=== PATIENT | male | born 1975 | race Caucasian/White ===

== ENCOUNTER 2017-09-14 09:10 | Day surgery (SDC) | payer OTHER ==
[2017-09-12 12:09] VITALS: BMI 29.2
[2017-09-14] MEDS ORDERED: BUPIVACAINE HCL/PF 2.5 MG/ML - 30 ML VIAL IJ ONE (10:40)
[2017-09-14] MEDS ORDERED: EPINEPHrine 1:1,000 1 MG/1 ML - 30ML VIAL (INJECTION) ONE (10:40)
[2017-09-14] MEDS ORDERED: PROPOFOL 20 ML ONE ×2 (11:45)
[2017-09-14] MEDS ORDERED: LIDOCAINE HCL 2% JELLY (5 ML/TUBE) ONE (11:56)
[2017-09-14] MEDS ORDERED: ceFAZolin SODIUM 1 GM VIAL ONE (11:56)
[2017-09-14] MEDS ORDERED: ONDANSETRON 4 MG/2 ML VIAL ONE ×2 (11:56→12:47)
[2017-09-14] MEDS ORDERED: DEXAMETHASONE SOD PHOSPHATE 4 MG/1 ML VIAL ONE (11:56)
[2017-09-14] MEDS ORDERED: KETOROLAC TROMETHAMINE 30 MG/1 ML VIAL ONE (11:56)
[2017-09-14] MEDS ORDERED: LIDOCAINE HCL/PF 2% SDV 5ML VIAL ONE (11:56)
[2017-09-14] MEDS ORDERED: ONDANSETRON 4 MG/2 ML VIAL IVPUSH PRN ×2 (12:04→12:38)
[2017-09-14] MEDS ORDERED: oxyCODONE HCL 5 MG TABLET PO PRN ×4 (12:04→12:38)
[2017-09-14] MEDS ORDERED: LACTATED RINGERS SOLUTION 1,000 ML IV SCH ×2 (12:15→12:45)
[2017-09-14] MEDS ORDERED: PROMETHAZINE HCL 25 MG/1 ML VIAL IVPUSH PRN (12:38)
[2017-09-14] MEDS ORDERED: oxyCODONE HCL 5 MG TABLET ONE ×2 (13:35→13:58)
[2017-09-14 14:35] VITALS: TEMP 97.7
[2017-09-14 14:39] VITALS: BP 115/74; PULSE 72
--- NOTE | 2017-09-16 23:00 | OP ---
DATE OF OPERATION: 09/14/2017 SURGEON: Parrish Salazar M.D. PLANT SPRAYER: Akiko Xie PREOPERATIVE DIAGNOSIS: 1. Right knee medial lateral meniscal tear. 2. Right knee cartilage injury. 3. Right knee synovitis. POSTOPERATIVE DIAGNOSIS: 1. Right knee medial lateral meniscal tear. 2. Right knee cartilage injury. 3. Right knee synovitis. PROCEDURE: 1. Right knee arthroscopy, partial meniscectomy medial and lateral meniscus. 2. Right knee arthroscopy with chondroplasty and abrasion plasty. 3. Right knee arthroscopy synovectomy including removal of medial plica. CPT CODES: 81267, [id number]. FINDINGS: 1. Medial meniscus posterior horn tear/minor. 2. Lateral meniscus posterior horn tear/minor. 3. Synovitis patellofemoral medial lateral notch area. 4. No evidence of cartilage injury . 6. ACL and PCL intact. 7. No evidence of cartilage injury . 8. Large medial plica with adhesion to anterior patellofemoral trochlea with grade 2-4 changes, anterior patellofemoral trochlea. 9. Grade 2 cartilage lateral facet patella. PROCEDURE: Informed consent was obtained. The patient came to the operating room, where the lower extremity was prepped and draped in a sterile fashion. A tourniquet was placed on the upper thigh, but not inflated. Using standard arthroscopic technique, a lateral incision and portal was made to allow for introduction of the camera into the suprapatellar bursa. This was then taken to the medial joint line, where under direct visualization, a medial incision and portal was made. Excessive synovium noted in the medial, lateral and patellofemoral and notch area was removed by an upbiter, shaver and Bovie cautery. This was found to bring in inflammatory tissue into the joint surface, a source of pain and dysfunction. Probing of the medial and lateral meniscus found tears, as described in the findings. These were removed with the upbiter and shaver and taken back to a stable rim. Grade 2 to 3 degenerative changes were treated with a chondroplasty, removing all flaking surfaces with low-setting Bovie along the periphery to prevent further flaking. Grade 4 changes, as noted, were treated with an abrasoplasty, creating a bleeding surface at the bone/cartilage interface. Aggressive debridement with shaver/felipe created bleeding surface. Mirco fracture also done when indicated in findings All areas of the knee were once again reexamined. The knee was then drained and a single suture was placed in all portals. A sterile dressing was placed and the patient was transferred to the recovery room without complication. PARRISH SALAZAR M.D. [id number]
--- NOTE | 2017-09-19 16:09 | PATH ---
Surgical Pathology Report Patient Name: JENNIFER DENTON Med. Rec. #: [id number] /Age/Gender: 1975 (Age: 41) / M Account: [id number] Location: [facility] Taken: 09/14/2017 Received: 09/14/2017 Reported: 09/19/2017 Physicians: Parrish Benitez M.D. Specimen(s) Received RIGHT KNEE SHAVINGS Clinical History Internal derangement of right knee Final Diagnosis KNEE, RIGHT, ARTHROSCOPIC SHAVINGS: FIBROSYNOVIAL TISSUE AND SCANT CARTILAGE. Electronically Signed Angelia Schultz M.D. Gross Description Received in formalin, labeled "right knee shavings," is a 4.5 x 4.3 x 0.4 cm. aggregate of escobar-yellow soft tissue fragments. A customer counter representative portion is submitted in one cassette. /09/17/2017 saudi09/17/2017
== END 2017-09-14 14:30 | disposition home or self-care (01) ==
LOC: FASU 09:10
PROVIDERS: ATTEND Orthopaedic Surgery
PROC: 0SBC4ZZ Excision of Right Knee Joint, Percutaneous Endoscopic Approach (ICD-10-PCS; 2017-09-14)
PROC: 0SBC4ZZ Excision of Right Knee Joint, Percutaneous Endoscopic Approach (ICD-10-PCS; 2017-09-14)
PROC: 0SBC4ZZ Excision of Right Knee Joint, Percutaneous Endoscopic Approach (ICD-10-PCS; principal; 2017-09-14 12:08)
DX: S83.241A Other tear of medial meniscus, current injury, right knee, initial encounter (principal); S83.281A Other tear of lateral meniscus, current injury, right knee, initial encounter; S83.8X1A Sprain of other specified parts of right knee, initial encounter; M65.861 Other synovitis and tenosynovitis, right lower leg; X58.XXXA Exposure to other specified factors, initial encounter; Y93.9 Activity, unspecified; Y92.9 Unspecified place or not applicable
CPT/HCPCS: 94760